=== PATIENT | female | born 1995 | race Caucasian/White ===

== ENCOUNTER 2016-08-07 16:05 | Inpatient (IN) | payer OTHER ==
[~2016-08-07] VITALS: Ht 167.6 cm; Wt 116.5 kg
[~2016-08-07 16:05] MED LIST: DOXY100T20 PO; PRENAT PO
[2016-08-07 16:29] VITALS: Ht 167.6 cm; Wt 116.5 kg
[2016-08-07 16:30] VITALS: BP 132/69; PULSE 83; RESP 16
[2016-08-07 16:56] LABS: ADD UMIC YES; URINE BILIRUBIN (Dip) NEGATIVE (NEGATIVE); URINE BLOOD (Dip) TRACE (NEGATIVE); URINE COLOR YELLOW (YELLOW); URINE GLUCOSE (Dip) NEGATIVE (NEGATIVE); URINE KETONES (Dip) NEGATIVE (NEGATIVE); URINE LEUKOCYTE ESTERASE (Dip) NEGATIVE (NEGATIVE); URINE NITRITE (Dip) NEGATIVE (NEGATIVE); URINE TOTAL PROTEIN (Dip) NEGATIVE (NEGATIVE); URINE UROBILINOGEN (Dip) 0.2 E.U./dL (0.1-1.0)
[2016-08-07 17:37] LABS: BACTERIA,URINE FEW; SQUAMOUS EPITHELIAL CELL,UR FEW; URINE RBCS 0-2 /HPF (0)
--- NOTE | 2016-08-07 18:48 | RADRPT ---
PROCEDURE: Obstetrical ultrasound CLINICAL INDICATION: labor TECHNIQUE: Multiple sonographic images of the pelvis were obtained. The images were reviewed on a PACS workstation. COMPARISON: None FINDINGS: The cervix is not well visualized. There is a single viable intrauterine gestation. Cardiac activity is present with 124 beats per minute. There is a vertex presentation. The placenta is fundal and left lateral in location. There is no evidence for an abruption or placen ta previa. There is a subjectively normal amount of amniotic fluid. Measurements were made in order to determine age. The results are as follows (cm): BPD =9.39 HC =33.51 AC =33.62 FL =7.48 Estimated gestational age by ultrasound of approximately 38 weeks, 1 day. The estimated date of delivery by ultrasound is 08/20/2016. Estimated gestational age by LMP of approximately 35 weeks, 5 days. The estimated date of delivery by LMP is 09/06/2016. EFW = 3333 grams (95th percentile) IMPRESSION: Single viable intrauterine gestation of approximately 38 weeks, 1 day . The estimated date of delivery is 08/20/2016 . Dating by ultrasound is within 17 days of dating by LMP. Cephalic presentation. Estimated weight is in the 95th percentile. RPTAT: EE Physician Rakesh Date Time Electronically viewed and signed by Physician Rakesh on 08/07/2016 18:48 /
--- NOTE | 2016-08-07 18:49 | RADRPT ---
PROCEDURE: US OB biophysical profile. CLINICAL INDICATION: evaluation TECHNIQUE: Multiple sonographic images of the pelvis were obtained. The images were reviewed on a PACS workstation. COMPARISON: No prior studies are available for comparison. FINDINGS: There is a single viable intrauterine gestation. Cardiac activity is present with 134 beats per min kerline. There is a vertex presentation. The placenta is fundal in location. There is no evidence of placental abruption. There is a normal amount of amniotic fluid with an MELO = 9.6 cm. Biophysical profile: movement 2/2 tone 2/2. breathing 2/2 MELO 2/2 Total 10/13 RPTAT: AA . IMPRESSION: Normal biophysical profile. Normal MELO of 9.6 cm. Physician Rakesh Date Time Electronically viewed and signed by Physician Rakesh on 08/07/2016 18:48 RA/
--- NOTE | 2016-08-07 19:08 | HP ---
Date/Time of Note Date/Time of Note DATE: 08/07/16 TIME: 19:04 OB - History Hx of Present Chief Complaint: contractions Estimated Due Date: Sep 06, 2016 : 2 Para: 1 Spontaneous : 0 Therapeutic : 0 Care: Other (Late preneatal care) Ultrasounds: Other (limited third trimester ultrasound) Obstetrical Complications: None Past Family/Social History * Past Medical, Surgical, Family and Obstetric Histories reviewed from chart. GBS Status: Unknown OB Admission Exam Vital Signs Vital Signs Vital Signs Date Time Temp Pulse Resp B/P Pulse Ox O2 Delivery O2 Flow Rate FiO2 08/07/16 16:30 98.1 83 16 132/69 Physical Exam HEENT: WNL Heart: Rhythm Normal Lungs: Clear Abdomen: WNL Extremities: Normal Cervical Dilatation: 3cm Effacement: 100% Station: -2 Membranes: Intact Heart Rate: 130's Accelerations: Accelerations Present Varibility: Moderate OB Assessment/Plan Reason for admission: active labor Plan: Expectant Management ANH MENJIVAR MD Aug 07, 2016 19:08
[2016-08-07] MEDS ORDERED: LACTATED RINGER'S 1,000 ML IV SCH (19:18)
--- NOTE | 2016-08-07 19:18 | TRIAGE ---
OB Triage Datetime Report Generated by CPN: 08/07/2016 19:18 Datetime: 08/07/2016 19:05 Membrane Status: Intact Datetime: 08/07/2016 19:00 Labor Evaluation Frequency: 5-7 Monitor Mode: External Duration (sec)2399: 60-90 Quality: Mild Pattern: Normal: <= 5 Contractions in 10 Minutes Resting Tone Gautier: Relaxed Heart Rate FHR Baseline Rate: 135 Monitor Mode: External US Variability: Moderate 6-25 bpm Accelerations: 15X15 Decelerations: None Category: Category I Pain Assessment Pain Scale: 5 Pain Presence: Intermittent Pain Type: Cramping Pain Location: Abdomen; Back Pain Goal: 3 Datetime: 08/07/2016 18:52 Vaginal Exam Dilatation (cms): 3.5 Effacement (%): 100 Station: -3 Exam By: DR.[email or web address] Datetime: 08/07/2016 18:01 Labor Evaluation Frequency: 5-7 Monitor Mode: External Duration (sec)2399: 90-110 Quality: Mild Pattern: Normal: <= 5 Contractions in 10 Minutes Resting Tone Gautier: Relaxed Heart Rate FHR Baseline Rate: 135 Monitor Mode: External US Variability: Moderate 6-25 bpm Accelerations: 15X15 Decelerations: None Category: Category I Pain Assessment Pain Scale: 5 Pain Presence: Intermittent Pain Location: Back Pain Goal: 3 Datetime: 08/07/2016 17:00 Labor Evaluation Frequency: 6-7 Monitor Mode: External Duration (sec)2399: 60-90 Quality: Mild Pattern: Normal: <= 5 Contractions in 10 Minutes Resting Tone Gautier: Relaxed Heart Rate FHR Baseline Rate: 135 Monitor Mode: External US Variability: Moderate 6-25 bpm Decelerations: Variable Category: Category II Pain Assessment Pain Scale: 5 Pain Presence: Intermittent Pain Location: Back Pain Goal: 3 Datetime: 08/07/2016 16:43 Vaginal Exam Dilatation (cms): 1.5 Effacement (%): 80 Station: -3 Exam By: wliu Datetime: 08/07/2016 16:32 Assessment Type: Triage EGA: 35.5 Time Provider Notified: 08/07/2016 16:37 Maternal Assessment Level of Consciousness: Fully Conscious DTR's/Clonus: DTRs 2+; No Clonus Headache: Denies Blurred Vision: No Respiratory Effort: Unlabored; Regular Rhythm; Equal Expansion Breath Sounds, Left: Clear and Equal Breath Sounds, Right: Clear and Equal Nausea/Vomiting: Denies RUQ Epigastric Pain: Denies Facial Edema: None Fall Risk Assessment History of Falling: (0) No Secondary Diagnosis: (0) No Ambulatory Aid: (0) Bedrest/Nurse Assist IV Therapy: (0) No Gait: (0) Normal/Bedrest/Immobile Mental Status: (0) Oriented to Own Ability Fall Score: 0 Fall Risk Score Definition: No Risk: No action required Datetime: 08/07/2016 16:31 Time of Arrival: 08/07/2016 16:10 Arrived By: Wheelchair Arrived From: Other Unit in Hospital Chief Complaint: Pt. came to hospital c/o back pain since 1100 am, pain level 5/10, come and goes Movement: Present Time Contractions Began: 08/07/2016 11:00 Rupture of Membranes: Denies Vaginal Discharge: Denies Recent Sexual Intercouse: Denies Abdominal Trauma: Not Applicable Patient Complaints: Back Pain Additional Patient Complaints: r/o ptl Time Provider Notified: 08/07/2016 16:35 Provider Notified: Initial Plan: ua, u/s for efw, miguel
[2016-08-07] MEDS ORDERED: METHYLERGONOVINE 0.2 MG INJ IM PRN (19:30)
[2016-08-07] MEDS ORDERED: BUTORPHANOL 2 MG INJ IV PRN (19:30)
[2016-08-07] MEDS ORDERED: ACETAMINOPHEN/CODEINE #3 TAB PO PRN (19:30)
[2016-08-07] MEDS ORDERED: IBUPROFEN 600 MG TAB PO PRN (19:30)
[2016-08-07] MEDS ORDERED: OXYTOCIN 30 UNITS/LR 500 ML IV PRN (19:30)
[2016-08-07] MEDS ORDERED: CARBOPROST 250 MCG INJ IM PRN (19:30)
[2016-08-07] MEDS ORDERED: AMPICILLIN 2 GM/NS (PMX) 100 ML IV ONE (19:30)
[2016-08-07] MEDS ORDERED: MISOPROSTOL 200 MCG TAB PR PRN (19:30)
[2016-08-07] MEDS ORDERED: LIDOCAINE 1% (MPF) 30 ML INJ INJ PRN (19:30)
[2016-08-07] MEDS ORDERED: OXYTOCIN 30 UNITS/LR 500 ML IV SCH ×2 (19:30)
[2016-08-07] MEDS ORDERED: LACTATED RINGER'S 1,000 ML IV PRN (20:00)
[2016-08-07 22:00] LABS: ADD SCAN DIFF NO
[2016-08-07 22:04] LABS: BASOPHILS % 0.3 % (0.0-2.0); EOSINOPHILS # 0.1 10^3/ul (0.0-0.5); EOSINOPHILS % 0.8 % (0.0-7.0); HEMATOCRIT 37.6 % (37.0-47.0); HEMOGLOBIN 12.4 g/dl (12.0-16.0); LYMPHOCYTES # 1.8 10^3/ul (0.8-2.9); LYMPHOCYTES % 14.4 % (15.0-51.0); MEAN CORPUSCULAR HEMOGLOBIN 26.6 pg (29.0-33.0); MEAN CORPUSCULAR VOLUME 80.5 fl (82.0-101.0); MEAN PLATELET VOLUME 12.6 fl (7.4-10.4); MONOCYTE # 0.9 10^3/ul (0.3-0.9); NEUTROPHIL # 9.7 10^3/ul (1.6-7.5); PLATELET COUNT 205 10^3/UL (140-415); RED BLOOD COUNT 4.67 10^6/ul (4.20-5.40); RED CELL DISTRIBUTION WIDTH 15.6 % (11.5-14.5); WHITE BLOOD COUNT 12.5 10^3/ul (4.8-10.8)
[2016-08-07 22:27] LABS: PARTIAL THROMBOPLASTIN TIME 27.1 Sec (25.0-35.0)
[2016-08-07 22:28] LABS: INR 0.98
[2016-08-07 23:20] LABS: BARBITURATES Negative (NEGATIVE); BENZODIAZEPINES Negative (NEGATIVE); CANNABINOIDS Negative (NEGATIVE); COCAINE Negative (NEGATIVE); OPIATES Negative (NEGATIVE)
[2016-08-07] MEDS ORDERED: AMPICILLIN 1 GM/NS (PMX) 50 ML IV SCH (23:30)
--- NOTE | 2016-08-07 23:55 | LDN ---
Date/Time of Note Date/Time of Note DATE: 08/07/16 TIME: 23:52 Delivery Summary Weeks of Gestation 35 weeks and 5 days Placenta Delivered: Spontaneously Meconium: none Episiotomy: No Perineal laceration: 1 Laceration repair: Second degree laceration repaired with 2-0 chromic Anesthesia type: Local Estimated blood loss: 300 Sponge & Needle done & correct: Yes All needle counts correct: Yes Any foreign bodies felt in the: No Problems: Delivery Information Sex Infant Sex: female Apgars 1 Minute: 8 5 Minute: 9 Suctioning Nose & mouth suctioned at jean: Yes Delee suction performed: No Umbilical Cord Umbilical cord with: 3 Vessels Cord presentations: nuchal cord Nuchal cord present X: 1 Cord Blood was obtained: Yes Mother & Baby Disposition Disposition Mom & Baby to Maternity; Good: Yes ANH MENJIVAR MD Aug 07, 2016 23:55
[2016-08-08 02:00] VITALS: BP 126/69; PULSE 69; RESP 18
[2016-08-08] MEDS ORDERED: METHYLERGONOVINE 0.2 MG INJ IM PRN (02:30)
[2016-08-08] MEDS ORDERED: MISOPROSTOL 200 MCG TAB PR PRN (02:30)
[2016-08-08] MEDS ORDERED: ACETAMINOPHEN 325 MG TAB PO PRN (02:30)
[2016-08-08] MEDS ORDERED: DIBUCAINE 1% 30 GM OINT PR PRN (02:30)
[2016-08-08] MEDS ORDERED: CARBOPROST 250 MCG INJ IM PRN (02:30)
[2016-08-08] MEDS ORDERED: ACETAMINOPHEN/CODEINE #3 TAB PO PRN (02:30)
[2016-08-08] MEDS ORDERED: OXYTOCIN 30 UNITS/LR 500 ML IV PRN (02:30)
[2016-08-08 03:00] VITALS: BP 122/69; PULSE 83; RESP 19
[2016-08-08] MEDS: BENZOCAINE 20% 56 ML SPRAY TOP PRN (03:52)
[2016-08-08] MEDS: WITCH HAZEL/GLYCERIN PAD PR PRN (03:53)
[2016-08-08] MEDS: LACTATED RINGER'S 1,000 ML IV* SCH ×3 (05:12→18:13)
[2016-08-08] MEDS: IBUPROFEN 600 MG TAB PO SCH ×3 (05:34→17:47)
[2016-08-08 07:56] LABS: ADD SCAN DIFF NO
[2016-08-08 07:57] LABS: ABNORMAL IP MESSAGE 1; BASOPHILS % 0.1 % (0.0-2.0); EOSINOPHILS # 0.1 10^3/ul (0.0-0.5); EOSINOPHILS % 0.6 % (0.0-7.0); HEMATOCRIT 34.6 % (37.0-47.0); HEMOGLOBIN 11.2 g/dl (12.0-16.0); LYMPHOCYTES # 2.5 10^3/ul (0.8-2.9); LYMPHOCYTES % 13.5 % (15.0-51.0); MEAN CORPUSCULAR HGB CONC 32.4 g/dl (32.0-37.0); MEAN CORPUSCULAR VOLUME 80.5 fl (82.0-101.0); MEAN PLATELET VOLUME 12.3 fl (7.4-10.4); MONOCYTE # 1.8 10^3/ul (0.3-0.9); MONOCYTES % 9.8 % (0.0-11.0); NEUTROPHIL # 13.7 10^3/ul (1.6-7.5); NEUTROPHILS % 75.6 % (39.0-77.0); PLATELET COUNT 178 10^3/UL (140-415); RED CELL DISTRIBUTION WIDTH 15.8 % (11.5-14.5); WHITE BLOOD COUNT 18.2 10^3/ul (4.8-10.8)
[2016-08-08 08:10] VITALS: BP 108/64; PULSE 78; RESP 20
[2016-08-08] MEDS: SENNA/DOCUSATE NA (8.6MG/50MG) TAB PO SCH ×2 (09:19→20:56)
[2016-08-08 12:00] VITALS: BP 105/60; PULSE 76; RESP 18
[2016-08-08 16:16] VITALS: BP 119/54; PULSE 77; RESP 18
[2016-08-08 20:00] VITALS: BP 109/57; PULSE 89; RESP 18
[2016-08-09 00:15] VITALS: BP 113/64; PULSE 95; RESP 20
[2016-08-09] MEDS: IBUPROFEN 600 MG TAB PO SCH ×4 (00:15→17:06)
[2016-08-09 03:45] VITALS: BP 107/50; PULSE 78; RESP 19
[2016-08-09 08:00] VITALS: BP 105/71; PULSE 75; RESP 20
[2016-08-09 08:09] LABS: ADD SCAN DIFF NO
[2016-08-09 08:14] LABS: BASOPHILS % 0.2 % (0.0-2.0); EOSINOPHILS # 0.2 10^3/ul (0.0-0.5); EOSINOPHILS % 1.8 % (0.0-7.0); HEMATOCRIT 31.6 % (37.0-47.0); HEMOGLOBIN 10.1 g/dl (12.0-16.0); LYMPHOCYTES # 3.1 10^3/ul (0.8-2.9); LYMPHOCYTES % 23.4 % (15.0-51.0); MEAN CORPUSCULAR HEMOGLOBIN 26.4 pg (29.0-33.0); MEAN CORPUSCULAR VOLUME 82.5 fl (82.0-101.0); MEAN PLATELET VOLUME 12.9 fl (7.4-10.4); MONOCYTE # 1.1 10^3/ul (0.3-0.9); MONOCYTES % 8.7 % (0.0-11.0); NEUTROPHIL # 8.5 10^3/ul (1.6-7.5); NEUTROPHILS % 65.4 % (39.0-77.0); PLATELET COUNT 180 10^3/UL (140-415); RED BLOOD COUNT 3.83 10^6/ul (4.20-5.40); RED CELL DISTRIBUTION WIDTH 16.1 % (11.5-14.5)
[2016-08-09] MEDS ORDERED: DIPHTH/TET/ACEL PERTUSS (ADULT) 0.5 ML VIAL IM* ONE (09:00)
[2016-08-09] MEDS: SENNA/DOCUSATE NA (8.6MG/50MG) TAB PO SCH ×2 (10:03→21:13)
[2016-08-09 15:52] VITALS: BP 104/67; PULSE 74; RESP 18
[2016-08-09] MEDS: WITCH HAZEL/GLYCERIN PAD PR PRN (17:10)
[2016-08-09] MEDS: BENZOCAINE 20% 56 ML SPRAY TOP PRN (17:10)
--- NOTE | 2016-08-09 18:47 | QN ---
Documentation Comment No complaint Afebrile VSS Continue with present care. ANH MENJIVAR MD Aug 09, 2016 18:47
[2016-08-09] MEDS ORDERED: LANOLIN 7 GM TUBE TOP PRN (19:30)
[2016-08-09 20:15] VITALS: BP 114/59; PULSE 87; RESP 20
[2016-08-10] MEDS: IBUPROFEN 600 MG TAB PO SCH ×4 (00:35→18:00)
[2016-08-10 04:00] VITALS: BP 103/56; PULSE 79; RESP 18
[2016-08-10 08:30] VITALS: BP 115/58; PULSE 85; RESP 19
[2016-08-10] MEDS: SENNA/DOCUSATE NA (8.6MG/50MG) TAB PO SCH (09:00)
[2016-08-10 16:00] VITALS: BP 121/55; PULSE 92; RESP 19
--- NOTE | 2016-08-10 19:35 | DS ---
Date/Time of Note Date/Time of Note DATE: 08/10/16 TIME: 19:34 Obstetrical Discharge Record Final Diagnosis Final Diagnosis: delivered Vaginal Delivery Obstetrical Delivery: Spontaneous, Laceration, Repaired Complications Labor Condition on Discharge Physical Assessment Voiding: Yes Bowel Movement: Yes Breast: Soft, non-tender Fundus: Firm Calf Tenderness: No Patient Condition: Stable ANH MENJIVAR MD Aug 10, 2016 19:35
[2016-08-10 20:10] VITALS: BP 117/71; PULSE 83; RESP 18
== END 2016-08-10 20:20 | disposition home or self-care (01) | DRG 775 ==
LOC: OBT 16:05 → L-D 16:05 → OBT 19:00 → L-D 20:18 → PP1 08-08 01:55
PROVIDERS: ADMIT Obstetrics & Gynecology; ATTEND Obstetrics & Gynecology
PROC: 10E0XZZ Delivery of Products of Conception, External Approach (ICD-10-PCS; principal; 2016-08-07)
PROC: 0KQM0ZZ Repair Perineum Muscle, Open Approach (ICD-10-PCS; 2016-08-07)
PROC: 3E00X4Z Introduction of Serum, Toxoid and Vaccine into Skin and Mucous Membranes, External Approach (ICD-10-PCS; 2016-08-09)
DX: O70.1 Second degree perineal laceration during delivery (principal); Z37.0 Single live birth; O60.14X0 Preterm labor third trimester with preterm delivery third trimester, not applicable or unspecified; O69.81X0 Labor and delivery complicated by cord around neck, without compression, not applicable or unspecified; Z23 Encounter for immunization; Z3A.35 35 weeks gestation of pregnancy
CPT/HCPCS: 76815; 76818; 80307; 81001; 85025; 85610; 85730; 86592; 86900; 86901; 87340; 88307; 90715; 99464; G0463; J0290; J2590; J7120